=== PATIENT | male | born 1965 | race African-American/Black ===

== ENCOUNTER 2017-03-01 11:47 | Emergency (ER) | payer SELFPAY ==
[~2017-03-01] VITALS: Ht 180.3 cm; Wt 108.0 kg
[2017-03-01] MEDS ORDERED: HYDR25TA5 PO (12:03)
[2017-03-01] MEDS ORDERED: AMLO10 PO (12:03)
[2017-03-01] MEDS ORDERED: SODIUM CHLORIDE 0.9% FLUSH 10 ML FLUSH IV FLUSH PRN (12:15)
[2017-03-01] MEDS ORDERED: ceFAZolin 2 GM PREMIX 50 ML IV ONE (12:15)
[2017-03-01] MEDS ORDERED: TETANUS/DIPHTHERIA TOXOID ADULT 0.5 ML VIAL IM ONE (12:15)
--- NOTE | 2017-03-01 12:21 | PD ---
HPI Chief Complaint: Injury Time Seen by Provider: 12:01 Travel History International Travel<30 days: No Contact w/Intl Traveler<30days: No Traveled to known affect area: No History of Present Illness HPI 51-year-old Afro-[place]ong[place]ian male presents the emergency department 2 weeks status post injury to the left anterior vidal. 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 Patient states since that time he's had some increased swelling and warmth below the actual abrasion. Patient denies fever or chills. He denies numbness or tingling distally. Pain is maybe a 5 out of 10. Patient has no history of diabetes or other chronic medical issues. He has no known drug allergies. PFSH Past Medical History Medical History: Denies Significant Hx Hx Anticoagulant Therapy: No Cardiovascular Problems: Yes (HTN) Chemotherapy: No Cerebrovascular Accident: No Diabetes: No Diminished Hearing: No Respiratory: No Tetanus Vaccination: Unknown Past Surgical History Surgical History: No Previous Surgery Social History Alcohol Use: No Tobacco Use: No Substance Use: No Allergies-Medications (Allergen,Severity, Reaction): Coded Allergies: No Known Allergies (Verified Allergy, Unknown, 03/01/17) Reported Meds & Prescriptions Reported Meds & Active Scripts Active Bactrim DS (Sulfamethoxazole-Trimethoprim) 800-160 Mg Tab 1 Tab PO BID Keflex (Cephalexin) 500 Mg Capsule 500 Mg PO Q8H 7 Days Reported Hydrochlorothiazide 25 Mg Tab 25 Mg PO DAILY Norvasc (Amlodipine Besylate) 10 Mg Tab 10 Mg PO DAILY Review of Systems Except as stated in HPI: all other systems reviewed are Neg General / Constitutional: No: Fever Eyes: No: Visual changes HENT: No: Headaches Cardiovascular: No: Chest Pain or Discomfort Respiratory: No: Shortness of Breath Gastrointestinal: No: Abdominal Pain Genitourinary: No: Dysuria Musculoskeletal: No: Pain Skin: Positive Lesions, No Rash Neurologic: No: Weakness Psychiatric: No: Depression Endocrine: No: Polydipsia Hematologic/Lymphatic: No: Easy Bruising Physical Exam Narrative GENERAL: Patient appears in no acute distress. SKIN: Warm and dry. Normal color. Normal turgor. Patient has healing abrasion to the upper anterior vidal. There is no significant erythema and mild warmth along with area of pitting edema, but no obvious sign of abscess or streaking. No expressible drainage. HEAD: Atraumatic. Normocephalic. EYES: Pupils equal and round. No scleral icterus. No injection or drainage. ENT: No nasal bleeding or discharge. Mucous membranes pink and moist. Pharynx is clear. Airway is patent. NECK: Trachea midline. Supple nontender. CARDIOVASCULAR: Regular rate and rhythm. RESPIRATORY: No accessory muscle use. Clear to auscultation. Breath sounds equal bilaterally. MUSCULOSKELETAL: Extremities without clubbing, cyanosis, or edema. No obvious deformities. NEUROLOGICAL: Awake and alert. No obvious cranial nerve deficits. Motor grossly within normal limits. Five out of 5 muscle strength in the arms and legs. Normal speech. PSYCHIATRIC: Appropriate mood and affect; insight and judgment normal. Data Data Last Documented VS Vital Signs Date Time Temp Pulse Resp B/P (MAP) Pulse Ox O2 Delivery O2 Flow Rate FiO2 03/01/17 12:32 16 100 Room Air Orders Orders Us Leg Soft Tissue (03/01/17 ) Complete Blood Count With Diff (03/01/17 12:07) Comprehensive Metabolic Panel (03/01/17 12:07) Lactic Acid (03/01/17 12:07) Iv Access Insert/Monitor (03/01/17 12:07) Ecg Monitoring (03/01/17 12:07) Oximetry (03/01/17 12:07) Sodium Chloride 0.9% Flush (Ns Flush) (03/01/17 12:15) Cefazolin 2 Gm Premix (Ancef 2 Gm Premix (03/01/17 12:15) Tetanus/Diphtheria Tox Adult (Tetanus/Di (03/01/17 12:15) Stocking, Jose Knee Xlg Xlng Pr (03/01/17 13:21) Ed Discharge Order (03/01/17 13:23) Labs Laboratory Tests Test 03/01/17 12:20 White Blood Count 5.6 TH/MM3 Red Blood Count 5.63 MIL/MM3 Hemoglobin 16.0 GM/DL Hematocrit 46.6 % Mean Corpuscular Volume 82.7 FL Mean Corpuscular Hemoglobin 28.4 PG Mean Corpuscular Hemoglobin Concent 34.3 % Red Cell Distribution Width 13.7 % Platelet Count 217 TH/MM3 Mean Platelet Volume 9.1 FL Neutrophils (%) (Auto) 55.1 % Lymphocytes (%) (Auto) 32.1 % Monocytes (%) (Auto) 7.5 % Eosinophils (%) (Auto) 4.3 % Basophils (%) (Auto) 1.0 % Neutrophils # (Auto) 3.1 TH/MM3 Lymphocytes # (Auto) 1.8 TH/MM3 Monocytes # (Auto) 0.4 TH/MM3 Eosinophils # (Auto) 0.2 TH/MM3 Basophils # (Auto) 0.1 TH/MM3 CBC Comment DIFF FINAL Differential Comment Blood Urea Nitrogen 18 MG/DL Creatinine 1.62 MG/DL Random Glucose 89 MG/DL Total Protein 7.9 GM/DL Albumin 3.8 GM/DL Calcium Level 8.9 MG/DL Alkaline Phosphatase 88 U/L Aspartate Amino Transf (AST/SGOT) 31 U/L Alanine Aminotransferase (ALT/SGPT) 46 U/L Total Bilirubin 1.1 MG/DL Sodium Level 137 MEQ/L Potassium Level 3.5 MEQ/L Chloride Level 104 MEQ/L Carbon Dioxide Level 25.7 MEQ/L Anion Gap 7 MEQ/L Estimat Glomerular Filtration Rate 46 ML/MIN Lactic Acid Level 1.1 mmol/L [facility] Medical Decision Making Medical Screen Exam Complete: Yes Emergency Medical Condition: Yes Differential Diagnosis Left vidal contusion. Left vidal abrasion. Cellulitis. Possible abscess. Narrative Course Patient is medically stable at time of exam. Labs ordered including CBC, CMP, lactic acid IV access is obtained patient is given 2 g Ancef IV as well as tetanus 0.5 mg IM. Soft tissue Ultrasound of the left lower extremity is ordered. CBC is unremarkable. Chemistries unremarkable except an elevated creatinine of 1.62, GFR 46. Lactic acid 1.1. Ultrasound of left lower extremity shows: CONCLUSION: 1. Small heterogeneous collection, likely organizing abscess, measuring 2.3 x 0.3 x 0.5 cm in the proximal left calf adjacent to patient's left calf wound. This is not felt to be a drainable abscess at this time. Patient will be treated for cellulitis with Bactrim DS twice a day 7 days. Patient also given Keflex 500 mg 3 times a day 7 days. Patient is given a compression stocking to be worn on the area. Patient is to follow-up as symptoms warrant in the next week. Diagnosis Primary Impression: Abrasion, left lower leg, initial encounter Additional Impressions: Left leg cellulitis Mild renal insufficiency Referrals: Primary Care Physician Patient Instructions: Abrasion (ED), Cellulitis (ED), General Instructions Additional Instructions: Patient will be treated for cellulitis with Bactrim DS twice a day 7 days. Patient also given Keflex 500 mg 3 times a day 7 days. Patient is given a compression stocking to be worn on the area. Patient is to follow-up as symptoms warrant in the next week. Recommend follow-up with her primary care physician regarding your renal insufficiency. Med/Other Pt SpecificInfo: Prescription(s) given Scripts Cephalexin (Keflex) 500 Mg Capsule 500 MG PO Q8H for Infection for 7 Days, #21 CAP 0 Refills Prov: Mario Haq MD 03/01/17 Sulfamethoxazole-Trimethoprim (Bactrim DS) 800-160 Mg Tab 1 TAB PO BID for Infection, #14 TAB 0 Refills Prov: Mario Haq MD 03/01/17 Disposition: 01 DISCHARGE HOME Condition: Stable Darren Davis Mar 01, 2017 12:21
[2017-03-01 12:32] VITALS: RESP 16; O2SAT 100
[2017-03-01 12:40] LABS: AUTOMATED NEUTROPHIL # 3.1 TH/MM3 (1.8-7.7); BASOPHIL # 0.1 TH/MM3 (0-0.2); EOSINOPHIL # 0.2 TH/MM3 (0-0.4); EOSINOPHIL % 4.3 % (0.0-4.0); HEMATOCRIT 46.6 % (39.0-51.0); HEMO FLAGS DIFF FINAL; LYMPH % 32.1 % (9.0-44.0); LYMPHOCYTE # 1.8 TH/MM3 (1.0-4.8); MEAN CELL VOLUME 82.7 FL (80.0-100.0); MEAN CORPUSCULAR HEMOGLOBIN 28.4 PG (27.0-34.0); MEAN CORPUSCULAR HGB CONC 34.3 % (32.0-36.0); MONO % 7.5 % (0.0-8.0); NEUT % 55.1 % (16.0-70.0); PLATELET COUNT 217 TH/MM3 (150-450); RED BLOOD COUNT 5.63 MIL/MM3 (4.50-5.90); RED CELL DISTRIBUTION WIDTH 13.7 % (11.6-17.2); WHITE BLOOD COUNT 5.6 TH/MM3 (4.0-11.0)
[2017-03-01 13:03] LABS: ALKALINE PHOSPHATASE 88 U/L (45-117); TOTAL BILIRUBIN ADULT 1.1 MG/DL (0.2-1.0)
--- NOTE | 2017-03-01 13:03 | RADRPT ---
EXAM DATE/TIME: 03/01/2017 12:38 [facility] COMPARISON: No previous studies available for comparison. INDICATIONS : Left calf wound. MEDICAL HISTORY : Hypertension. Left calf wound. SURGICAL HISTORY : None. ENCOUNTER: Initial ACUITY: 2 days PAIN SCORE: 3/10 LOCATION: Left calf/vidal. AREA EVALUATED: Left anterior vidal. FINDINGS: MASSES: None. FLUID COLLECTIONS: Small predominantly hypoechoic complex collection in the left proximal vidal region adjacent to patien t's left calf wound. This measures 2.3 x 0.3 x 0.5 cm. OTHER: Negative. CONCLUSION: 1. Small heterogeneous collection, likely organizing abscess, measuring 2.3 x 0.3 x 0.5 cm in the pro ximal left calf adjacent to patient's left calf wound. Roscoe García MD on March 01, 2017 at 13:00 Board Certified Radiologist. This report was verified electronically.
[2017-03-01 13:11] LABS: ALT (GPT) 46 U/L (12-78); ANION GAP 7 MEQ/L (5-15); AST (GOT) 31 U/L (15-37); BICARBONATE 25.7 MEQ/L (21.0-32.0); BLOOD UREA NITROGEN 18 MG/DL (7-18); CHLORIDE 104 MEQ/L (98-107); GLOMERULAR FILTRATION RATE 46 ML/MIN (>89); POTASSIUM 3.5 MEQ/L (3.5-5.1); SODIUM (NA) 137 MEQ/L (136-145)
[2017-03-01] MEDS ORDERED: BACT800T5 PO (13:22)
[2017-03-01] MEDS ORDERED: CEPH-460 PO (13:22)
== END 2017-03-01 14:12 | disposition home or self-care (01) ==
LOC: NEPC 11:47
DX: S80.812A Abrasion, left lower leg, initial encounter (principal); L03.116 Cellulitis of left lower limb; I10 Essential (primary) hypertension; N28.9 Disorder of kidney and ureter, unspecified; Z23 Encounter for immunization; W01.0XXA Fall on same level from slipping, tripping and stumbling without subsequent striking against object, initial encounter
CPT/HCPCS: 76882; 80053; 83605; 85025; 90471; 90714; 96365; 99285; J0690